=== PATIENT | female | born 1970 | race Caucasian/White ===

== ENCOUNTER 2020-12-18 11:04 | Emergency (ER) | payer OTHER ==
[~2020-12-18] VITALS: Ht 152.4 cm; Wt 63.5 kg
[2020-12-18 11:12] VITALS: BP 126/84
[2020-12-18] MEDS ORDERED: NACL 0.9% 1,000 ML IV ONE (11:25)
--- NOTE | 2020-12-18 11:46 | NUR ---
50/F presents to ED with c/o diarrhea, headache and body aches since . Patient states she had worsening cold symptoms with no relief. Denies chest pain or shortness of breath, reoccurring episodes of diarrhea, and abdominal pain making it difficult to eat and drink. Denies fever or chills, states has loss of taste and smell, received last covid vaccine on 12/08/20.
--- NOTE | 2020-12-18 11:49 | NUR ---
Labs and covid swab collected bedside and handed to denture laboratory technician.
[2020-12-18 11:53] LABS: BASOPHILS % (AUTO) 0.2 % (0.0-2.0); EOSINOPHILS # (AUTO) 0.1 K/uL (0-0.4); EOSINOPHILS % (AUTO) 2.4 % (0.0-4.0); HEMOGLOBIN 13.5 g/dL (12.0-16.0); LYMPHOCYTES # (AUTO) 1.6 K/uL (2.5-16.5); LYMPHOCYTES % (AUTO) 53.8 % (20.5-51.1); MEAN CORPUSCULAR HEMOGLOBIN 33 pg (27-31); MEAN CORPUSCULAR HGB CONC 34 g/dL (33-37); MEAN CORPUSCULAR VOLUME 97.1 fL (80-94); MONOCYTES # (AUTO) 0.3 K/uL (0.8-1.0); MONOCYTES % (AUTO) 9.8 % (1.7-9.3); NEUTROPHILS % (AUTO) 33.8 % (42.2-75.2); PLATELET COUNT (AUTO) 336 K/uL (140-450); RED BLOOD CELL COUNT(AUTO) 4.12 MIL/uL (4.20-5.40); RED CELL DISTRIBUTION WIDTH 12.9 % (11.6-13.7)
[2020-12-18 12:06] LABS: ALBUMIN 3.9 g/dL (3.4-5.0); ANION GAP 12.2 (8-16); CARBON DIOXIDE 25.9 mmol/L (21-32); CREATININE 0.6 mg/dL (0.6-1.3); POTASSIUM 4.1 mmol/L (3.5-5.1); TOTAL BILIRUBIN 0.2 mg/dL (0.0-1.0)
[2020-12-18 12:49] VITALS: BP 126/84
--- NOTE | 2020-12-18 12:49 | NUR ---
Patient discharged with v/s stable. Written and verbal after care instructions given and explained. Patient verbalized understanding. Ambulatory with steady gait. All questions addressed prior to discharge. Advised to follow up with PMD.
== END 2020-12-18 12:49 | disposition home or self-care (01) ==
LOC: MED 11:04
DX: U07.1 COVID-19 (principal)
CPT/HCPCS: 36415; 80053; 81002; 81025; 82150; 83690; 85025; 87426; 96360; 99283; J7030

== ENCOUNTER 2020-12-30 15:23 | Emergency (ER) | payer OTHER ==
[~2020-12-30] VITALS: Ht 154.9 cm; Wt 65.8 kg
[2020-12-30 15:43] VITALS: BP 106/61
--- NOTE | 2020-12-30 15:48 | NUR ---
PT TO AWAIT IN LOBBY
--- NOTE | 2020-12-30 16:41 | NUR ---
PT AMBULATED TO BED 1
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
--- NOTE | 2020-12-30 16:54 | NUR ---
GINETTE Felix at pt bedside for further evaluation.
--- NOTE | 2020-12-30 17:05 | NUR ---
Pt taken to XR via W/C.
--- NOTE | 2020-12-30 17:14 | NUR ---
Pt taken to ER bed 1 via W/C.
[2020-12-30] MEDS ORDERED: IBUP-2213 PO (17:47)
[2020-12-30 18:12] VITALS: BP 106/61
--- NOTE | 2020-12-30 18:12 | NUR ---
Patient discharged with v/s stable. Written and verbal after care instructions given RIB CONTUSIONand explained. Patient alert, oriented and verbalized understanding of instructions. Ambulatory with steady gait. All questions addressed prior to discharge. ID band removed. Patient advised to follow up with PMD. Rx of IBUPROFEN 600MG PO Q6H PRN PAIN given. Patient educated on indication of medication including possible reaction and side effects. Opportunity to ask questions provided and answered.
== END 2020-12-30 18:12 | disposition home or self-care (01) ==
LOC: MED 15:23
DX: S40.012A Contusion of left shoulder, initial encounter (principal); S20.219A Contusion of unspecified front wall of thorax, initial encounter; V49.9XXA Car occupant (driver) (passenger) injured in unspecified traffic accident, initial encounter; Y93.89 Activity, other specified; Y92.89 Other specified places as the place of occurrence of the external cause; Y99.8 Other external cause status
CPT/HCPCS: 71101; 99283

== ENCOUNTER 2021-04-08 13:26 | Emergency (ER) | payer OTHER ==
[~2021-04-08] VITALS: Ht 162.6 cm; Wt 63.0 kg
[~2021-04-08 13:26] MED LIST: IBUP-2213 PO
[2021-04-08 13:52] VITALS: BP 131/60
--- NOTE | 2021-04-08 13:55 | NUR ---
PT SENT TO LOBBY
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
[2021-04-08] MEDS ORDERED: IBUP-1842 PO (15:35)
[2021-04-08] MEDS ORDERED: BACI1PAC6 TP (15:35)
[2021-04-08] MEDS ORDERED: BACITRACIN OINT 500 UNITS/GM PKT TP ONE (15:35)
[2021-04-08 16:30] VITALS: BP 137/83
--- NOTE | 2021-04-08 16:35 | NUR ---
Patient discharged with v/s stable. Written and verbal after care instructions given and explained. Patient alert, oriented and verbalized understanding of instructions. Ambulatory with steady gait. All questions addressed prior to discharge. ID band removed. Patient advised to follow up with PMD. Rx of Bacitracin, Ibuprofen given. Patient educated on indication of medication including possible reaction and side effects. Opportunity to ask questions provided and answered.
== END 2021-04-08 16:35 | disposition home or self-care (01) ==
LOC: MED 13:34
DX: S61.212A Laceration without foreign body of right middle finger without damage to nail, initial encounter (principal); Z79.2 Long term (current) use of antibiotics; Z79.1 Long term (current) use of non-steroidal anti-inflammatories (NSAID); W23.0XXA Caught, crushed, jammed, or pinched between moving objects, initial encounter; Y93.89 Activity, other specified; Y92.89 Other specified places as the place of occurrence of the external cause; Y99.0 Civilian activity done for income or pay
CPT/HCPCS: 73130; 90471; 90715; 99283

== ENCOUNTER 2021-11-27 12:33 | Emergency (ER) | payer OTHER ==
[~2021-11-27] VITALS: Ht 152.4 cm; Wt 66.7 kg
[~2021-11-27 12:33] MED LIST changes: +BACI1PAC6 TP; +IBUP-1842 PO
[2021-11-27 12:39] VITALS: BP 128/84
--- NOTE | 2021-11-27 12:46 | NUR ---
PT AMBULATE TO ROOM 4 PT IN GOWN AND URINE OBTAINED
--- NOTE | 2021-11-27 13:01 | NUR ---
URINE DIP AND URINE PREG COMPLETE
[2021-11-27] MEDS ORDERED: KETOROLAC 60 MG/2 ML VIAL IM ONE (13:15)
[2021-11-27] MEDS ORDERED: IBUP-2213 PO (13:57)
[2021-11-27] MEDS ORDERED: ACET-8386 PO (13:57)
--- NOTE | 2021-11-27 14:10 | NUR ---
Patient discharged with v/s stable. Written and verbal after care instructions given and explained. Patient alert, oriented and verbalized understanding of instructions. Ambulatory with steady gait. All questions addressed prior to discharge. ID band removed. Patient advised to follow up with PMD. Rx of HYDROCODONE given. Patient educated on indication of medication including possible reaction and side effects. Opportunity to ask questions provided and answered.
--- NOTE | 2021-11-27 14:11 | NUR ---
The patient's care was reviewed and supervised by Yecenia Johnson RN.
== END 2021-11-27 14:10 | disposition home or self-care (01) ==
LOC: MED 12:33
DX: M54.50 Low back pain, unspecified (principal); R03.0 Elevated blood-pressure reading, without diagnosis of hypertension; Z90.49 Acquired absence of other specified parts of digestive tract
CPT/HCPCS: 81002; 81025; 96372; 99283; J1885

== ENCOUNTER 2022-05-13 16:34 | Emergency (ER) | payer OTHER ==
[~2022-05-13] VITALS: Ht 152.4 cm; Wt 65.0 kg
[~2022-05-13 16:34] MED LIST changes: +ACET-8386 PO
[2022-05-13 16:47] VITALS: BP 130/71
--- NOTE | 2022-05-13 16:51 | NUR ---
Coby ocasio in [facility] - 05/13/22 at 1653 by [email or web address] ELEANOR
--- NOTE | 2022-05-13 16:54 | NUR ---
BIB SELF C/O GENERALIZED RASH X 5 DAYS. DENIES N/V/D; SKIN IS PINK/WARM/DRY; AAOX4 WITH EVEN AND STEADY GAIT; LUNGS CLEAR BL; HR EVEN AND REGULAR; PT DENIES ANY FEVER, CP, SOB, OR COUGH AT THIS TIME; PATIENT STATES PAIN OF 0/10 AT THIS TIME.
[2022-05-13] MEDS ORDERED: DIPH-988 PO (17:25)
== END 2022-05-13 17:44 | disposition home or self-care (01) ==
LOC: MED 16:34
DX: L29.9 Pruritus, unspecified (principal); Z90.49 Acquired absence of other specified parts of digestive tract; Z79.899 Other long term (current) drug therapy
CPT/HCPCS: 99282

== ENCOUNTER 2022-05-15 11:14 | Emergency (ER) | payer OTHER ==
[~2022-05-15] VITALS: Ht 157.5 cm; Wt 67.6 kg
[~2022-05-15 11:14] MED LIST changes: +DIPH-988 PO
--- NOTE | 2022-05-15 11:24 | NUR ---
CALLED TO TRIAGE NO RESPONSE
[2022-05-15 11:30] VITALS: BP 118/92
[2022-05-15] MEDS ORDERED: ACET-10509 PO (15:40)
[2022-05-15] MEDS ORDERED: IBUP-2213 PO (15:40)
--- NOTE | 2022-05-15 16:14 | NUR ---
Patient discharged with v/s stable. Written and verbal after care instructions ABOUT COVID given and explained. Patient alert, oriented and verbalized understanding of instructions. Ambulatory with steady gait. All questions addressed prior to discharge. ID band removed. Patient advised to follow up with PMD. Rx of ACETAMINOPHEN, IBUPROFEN given. Patient educated on indication of medication including possible reaction and side effects. Opportunity to ask questions provided and answered.
== END 2022-05-15 16:14 | disposition home or self-care (01) ==
LOC: MED 11:14
DX: U07.1 COVID-19 (principal); R51.9 Headache, unspecified; R05.9 Cough, unspecified; Z79.899 Other long term (current) drug therapy
CPT/HCPCS: 99283

== ENCOUNTER 2023-07-13 19:18 | Emergency (ER) | payer OTHER ==
[~2023-07-13] VITALS: Ht 152.4 cm; Wt 63.5 kg
[~2023-07-13 19:18] MED LIST changes: +ACET-10509 PO; -ACET-8386 PO; +ACET-8905 PO; +BACI-418 TP; -BACI1PAC6 TP
[2023-07-13 19:35] VITALS: BP 117/78; PULSE 90; RESP 17; TEMP 98; O2SAT 99
[2023-07-13] MEDS ORDERED: DIPH25TA53 PO ×3 (21:56→22:15)
[2023-07-13] MEDS ORDERED: PRED20TA5 PO ×3 (21:56→22:15)
== END 2023-07-13 22:04 | disposition home or self-care (01) ==
LOC: MED 19:18
DX: L29.9 Pruritus, unspecified (principal); Z79.899 Other long term (current) drug therapy; Z79.1 Long term (current) use of non-steroidal anti-inflammatories (NSAID); Z79.2 Long term (current) use of antibiotics
CPT/HCPCS: 99283